=== PATIENT | female | born 1990 | race Caucasian/White ===

== ENCOUNTER 2017-01-02 09:02 | Emergency (ER) | payer BC ==
[~2017-01-02 09:02] MED LIST: ANSAID100 MG PO; BACTRIM DS TABL1 TA1 PO; BENADRYL25 MG PO; BIRTH CONTROL PILL PO; CLINDAMYCIN HC300 MG PO; DOXYCYCLINE PO; ELIMITE60 GM; ELIMITE60 GM TOP; LORTAB 5/500 TA1 TA1 PO; NO MEDICATIONS; PHENERGAN PO; TESSALON PERLE100 M1 PO; ULTRAM PO; ZITHROMAX PO
== END 2017-01-02 09:57 | disposition home or self-care (01) ==
LOC: SED 09:02
DX: J02.0 Streptococcal pharyngitis (principal); Z88.0 Allergy status to penicillin
CPT/HCPCS: 87880; 99283